=== PATIENT | female | born 1945 | race Caucasian/White ===

== ENCOUNTER 2016-11-16 16:23 | Inpatient (IN) | payer OTHER, BC ==
[~2016-11-16] VITALS: Ht 162.6 cm; Wt 87.3 kg
[~2016-11-16 16:23] MED LIST: AMITRIPTYLINE H50 MG PO; COENZYME Q-1010 MG PO; FLUTICASON0.05 MG/Ac; FOLIC ACID1 MG PO; HYDROCODONE/ACE1 TA2; LAC PO; LEVAQUIN500 MG PO; LEVEMIR100 U/M1 SC; MIDODRINE HCL2.5 M1 PO; MOTRIN800 MG PO; NOVOLOG FLEX100 U/M1 SC; PAXIL10 MG PO; PAXIL20 MG PO; PROTONIX40 MG PO; RESTORIL30 MG PO; TRAZODONE100 MG PO; VITAMIN B121000 MCG PO; VITAMIN D32000 I2 PO; XANAX0.5 MG PO; ZES10 PO
[2016-11-16 16:50] LABS: CARBON DIOXIDE 28.9 mmol/L (21-32); CREATININE SERUM 1.7 mg/dL (0.6-1.0); POTASSIUM SERUM 3.6 mmol/L (3.5-5.1)
[2016-11-16 16:51] LABS: BASOPHIL % 0.6 % (0-2); PLATELET COUNT 348 x10^3mcL (130-400)
[2016-11-16 16:57] LABS: BILIRUBIN TOTAL 0.25 mg/dL (0.20-1.00); TOTAL PROTEIN, SERUM 6.8 g/dL (6.4-8.2)
[2016-11-16 16:58] LABS: ALBUMIN 3.2 g/dL (3.4-5.0); CHOLESTEROL/HDL RATIO 3.1
[2016-11-16 17:11] LABS: T3 TOTAL 0.67 ng/mL
[2016-11-16 17:22] LABS: FREE T4 0.97 ng/dL (0.76-1.46); FREE THYROXINE INDEX 2.3 ug/dL (1.4-4.5); T4(THYROXINE) 6.1 ug/dL (4.7-13.3)
[2016-11-16 17:25] LABS: UA SPECIFIC GRAVITY 1.025 (1.005-1.035); microscopic required? YES; urine erythrocyte NEGATIVE (NEGATIVE)
[2016-11-16] MEDS ORDERED: PROA PO (17:41)
[2016-11-16 18:42] LABS: PHOSPHOROUS 3.2 mg/dL (2.5-4.9)
[2016-11-16 18:52] LABS: AMPHETAMINE QUAL UR NONE DETECTED (NEG <=1000)
[2016-11-16 19:05] VITALS: BP 174/73
[2016-11-16 21:25] VITALS: BP 112/60
[2016-11-17 05:35] VITALS: BP 128/61
[2016-11-17 06:11] LABS: BASOPHIL % 0.7 % (0-2); PLATELET COUNT 303 x10^3mcL (130-400)
[2016-11-17 06:38] LABS: CALCIUM 8.6 mg/dL (8.5-10.1); CARBON DIOXIDE 29.3 mmol/L (21-32); CREATININE SERUM 1.7 mg/dL (0.6-1.0); MAGNESIUM 2.2 mg/dL (1.8-2.4); PHOSPHOROUS 5.5 mg/dL (2.5-4.9); POTASSIUM SERUM 4.7 mmol/L (3.5-5.1)
[2016-11-17 06:54] LABS: RED CELL DISTRIBUTION WIDTH 17.3 % (11.5-14.5)
[2016-11-17 09:00] VITALS: BP 148/65
[2016-11-17 13:30] VITALS: BP 152/63
[2016-11-17 17:30] VITALS: BP 114/49
[2016-11-17 20:11] VITALS: BP 119/49
[2016-11-18 06:01] VITALS: BP 163/67
[2016-11-18] MEDS ORDERED: LIPI10 PO (06:21)
[2016-11-18 06:41] LABS: CALCIUM 8.2 mg/dL (8.5-10.1); CARBON DIOXIDE 27.6 mmol/L (21-32); CREATININE SERUM 1.5 mg/dL (0.6-1.0); PHOSPHOROUS 3.8 mg/dL (2.5-4.9); POTASSIUM SERUM 4.2 mmol/L (3.5-5.1)
[2016-11-18 06:42] LABS: ALBUMIN 2.4 g/dL (3.4-5.0)
[2016-11-18 11:30] VITALS: BP 141/66
[2016-11-18] MEDS ORDERED: CLOPIDOGREL75 M1 PO (15:13)
[2016-11-18] MEDS ORDERED: NORCO1 TA2 PO (15:18)
[2016-11-18 15:35] VITALS: BP 200/94
[2016-11-18] MEDS ORDERED: MIDODRINE HCL2.5 M1 PO (15:35)
[2016-11-18 21:42] VITALS: BP 155/59
[2016-11-18 23:30] VITALS: BP 141/66
[2016-11-19] VITALS (7 sets, daily range): BP systolic 133–164; BP diastolic 55–65
[2016-11-19 06:45] LABS: CALCIUM 8.8 mg/dL (8.5-10.1); CARBON DIOXIDE 30.1 mmol/L (21-32); CREATININE SERUM 1.4 mg/dL (0.6-1.0); POTASSIUM SERUM 4.5 mmol/L (3.5-5.1)
[2016-11-19] MEDS ORDERED: ATORVASTATIN CA40 M1 PO (11:20)
== END 2016-11-19 13:03 | disposition home or self-care (01) | DRG 205 ==
LOC: ED 16:23 → DU 17:50
PROVIDERS: Family Medicine; Specialist; ADMIT Family Medicine
DX: M94.0 Chondrocostal junction syndrome [Tietze] (principal); N17.0 Acute kidney failure with tubular necrosis; E43 Unspecified severe protein-calorie malnutrition; D68.69 Other thrombophilia; E11.59 Type 2 diabetes mellitus with other circulatory complications; E11.51 Type 2 diabetes mellitus with diabetic peripheral angiopathy without gangrene; E11.65 Type 2 diabetes mellitus with hyperglycemia; E11.42 Type 2 diabetes mellitus with diabetic polyneuropathy; I16.0 Hypertensive urgency; I95.1 Orthostatic hypotension; I44.4 Left anterior fascicular block; G47.00 Insomnia, unspecified; G25.81 Restless legs syndrome; F41.9 Anxiety disorder, unspecified; M51.34 Other intervertebral disc degeneration, thoracic region; D64.9 Anemia, unspecified; E03.9 Hypothyroidism, unspecified; E78.5 Hyperlipidemia, unspecified; E66.9 Obesity, unspecified; Z68.33 Body mass index [BMI] 33.0-33.9, adult; Z79.4 Long term (current) use of insulin; Z79.891 Long term (current) use of opiate analgesic
CPT/HCPCS: 82962; 83880; 84439; B4164; C9113; J0360; J1170; J1815; J7030; Q0092

== ENCOUNTER 2017-06-18 14:06 | Inpatient (IN) | payer OTHER, BC ==
[~2017-06-18] VITALS: Ht 162.6 cm; Wt 80.4 kg
[~2017-06-18 14:06] MED LIST changes: +ATORVASTATIN CA40 M1 PO; +CLOPIDOGREL75 M1 PO; +LIPI10 PO; +NORCO1 TA2 PO; +PROA PO
[2017-06-18 14:10] VITALS: Ht 162.6 cm; Wt 80.4 kg
[2017-06-18 15:01] LABS: BASOPHIL % 0.6 % (0-2); PLATELET COUNT 295 x10^3mcL (130-400)
[2017-06-18 15:04] LABS: RED CELL DISTRIBUTION WIDTH 17.4 % (11.5-14.5)
[2017-06-18 15:18] LABS: ALBUMIN 3.6 g/dL (3.4-5.0); ALKALINE PHOSPHATASE 96 U/L (46-116); ALT/SGPT 8 U/L (14-59); AST/SGOT 20 U/L (15-37); BILIRUBIN TOTAL 0.3 mg/dL (0.20-1.00); CALCIUM 9.1 mg/dL (8.5-10.1); CARBON DIOXIDE 28.6 mmol/L (21-32); CHLORIDE SERUM 104 mmol/L (98-107); CREATININE SERUM 1.4 mg/dL (0.6-1.0); POTASSIUM SERUM 3.2 mmol/L (3.5-5.1); SODIUM SERUM 142 mmol/L (136-145); TOTAL PROTEIN, SERUM 7.7 g/dL (6.4-8.2)
[2017-06-18 15:29] LABS: GLUCOSE SERUM 56 mg/dL (74-106)
[2017-06-18 15:38] LABS: microscopic required? YES; urine erythrocyte NEGATIVE (NEGATIVE)
[2017-06-18 17:27] VITALS: BP 137/70
[2017-06-18 18:01] LABS: MAGNESIUM 2.2 mg/dL (1.8-2.4); PHOSPHOROUS 1.9 mg/dL (2.5-4.9)
[2017-06-18 18:07] LABS: CHOLESTEROL/HDL RATIO 3.1
[2017-06-18 18:12] LABS: FREE T4 0.83 ng/dL (0.76-1.46)
[2017-06-18 18:19] LABS: T3 TOTAL 1.01 ng/mL
[2017-06-18] MEDS ORDERED: SEROQUEL25 MG PO (18:47)
[2017-06-18] MEDS ORDERED: METHADONE HCL5 MG PO ×2 (18:47→18:59)
[2017-06-18] MEDS ORDERED: MIDODRINE HCL10 MG PO (18:48)
[2017-06-18 21:23] VITALS: BP 167/55
[2017-06-19] VITALS (8 sets, daily range): BP systolic 145–174; BP diastolic 45–66
[2017-06-19 07:19] LABS: BASOPHIL % 0.7 % (0-2); PLATELET COUNT 209 x10^3mcL (130-400)
[2017-06-19 07:39] LABS: CALCIUM 8.7 mg/dL (8.5-10.1); CARBON DIOXIDE 27.6 mmol/L (21-32); CHLORIDE SERUM 109 mmol/L (98-107); CREATININE SERUM 1.2 mg/dL (0.6-1.0); GLUCOSE SERUM 159 mg/dL (74-106); MAGNESIUM 2.2 mg/dL (1.8-2.4); PHOSPHOROUS 3.3 mg/dL (2.5-4.9); POTASSIUM SERUM 4.5 mmol/L (3.5-5.1); SODIUM SERUM 141 mmol/L (136-145)
[2017-06-20 06:20] LABS: CALCIUM 8.4 mg/dL (8.5-10.1); CARBON DIOXIDE 27.5 mmol/L (21-32); CHLORIDE SERUM 107 mmol/L (98-107); CREATININE SERUM 1.2 mg/dL (0.6-1.0); GLUCOSE SERUM 198 mg/dL (74-106); POTASSIUM SERUM 4.7 mmol/L (3.5-5.1); SODIUM SERUM 140 mmol/L (136-145)
[2017-06-20 06:37] VITALS: BP 119/42
[2017-06-20 06:50] LABS: BASOPHIL % 0.7 % (0-2); PLATELET COUNT 191 x10^3mcL (130-400)
[2017-06-20 06:53] LABS: RED CELL DISTRIBUTION WIDTH 17.2 % (11.5-14.5)
[2017-06-20 08:25] VITALS: BP 106/64
[2017-06-20 12:40] VITALS: BP 174/75
[2017-06-20 15:29] VITALS: BP 142/86
[2017-06-20] MEDS ORDERED: ZAN4 PO (15:34)
[2017-06-20] MEDS ORDERED: PEP20 PO (15:35)
[2017-06-20] MEDS ORDERED: LAC PO (15:54)
[2017-06-20] MEDS ORDERED: LEVAQUIN250 M1 PO (15:54)
[2017-06-20 16:07] VITALS: BP 142/86
== END 2017-06-20 17:01 | disposition home or self-care (01) | DRG 391 ==
LOC: ED 14:06 → DU 15:54
PROVIDERS: Emergency Medicine; Internal Medicine Gastroenterology; Student in an Organized Health Care Education/Training Program
PROC: 0DB68ZX Excision of Stomach, Via Natural or Artificial Opening Endoscopic, Diagnostic (ICD-10-PCS; principal; 2017-06-20 10:00)
DX: K52.9 Noninfective gastroenteritis and colitis, unspecified (principal); N17.0 Acute kidney failure with tubular necrosis; E87.2 Acidosis; I95.1 Orthostatic hypotension; T38.3X1A Poisoning by insulin and oral hypoglycemic [antidiabetic] drugs, accidental (unintentional), initial encounter; E11.649 Type 2 diabetes mellitus with hypoglycemia without coma; R55 Syncope and collapse; I16.0 Hypertensive urgency; E86.0 Dehydration; E87.6 Hypokalemia; E83.39 Other disorders of phosphorus metabolism; E11.65 Type 2 diabetes mellitus with hyperglycemia; E11.40 Type 2 diabetes mellitus with diabetic neuropathy, unspecified; G89.4 Chronic pain syndrome; Z79.891 Long term (current) use of opiate analgesic; Z79.4 Long term (current) use of insulin; Z98.84 Bariatric surgery status; Z98.1 Arthrodesis status; Y92.009 Unspecified place in unspecified non-institutional (private) residence as the place of occurrence of the external cause; Z68.25 Body mass index [BMI] 25.0-25.9, adult
CPT/HCPCS: 43235; 82962; 83880; 84439; 90732; J1200; J1610; J1815; J1956; J2250; J2310; J2765; J3010; J3480; J3490; J7030; J7042; Q0092

== ENCOUNTER 2017-06-21 08:33 | Emergency (ER) | payer OTHER, BC ==
[~2017-06-21] VITALS: Ht 170.2 cm; Wt 72.6 kg
[~2017-06-21 08:33] MED LIST changes: +LEVAQUIN250 M1 PO; +METHADONE HCL5 MG PO; +MIDODRINE HCL10 MG PO; +PEP20 PO; +SEROQUEL25 MG PO; +ZAN4 PO
[2017-06-21 08:39] VITALS: Ht 170.2 cm; Wt 72.6 kg
[2017-06-21 10:32] LABS: BASOPHIL % 0.4 % (0-2); PLATELET COUNT 243 x10^3mcL (130-400)
[2017-06-21 10:35] LABS: CALCIUM 8.8 mg/dL (8.5-10.1); CARBON DIOXIDE 25.6 mmol/L (21-32); CHLORIDE SERUM 106 mmol/L (98-107); CREATININE SERUM 1.3 mg/dL (0.6-1.0); GLUCOSE SERUM 61 mg/dL (74-106); POTASSIUM SERUM 3.3 mmol/L (3.5-5.1); SODIUM SERUM 142 mmol/L (136-145)
[2017-06-21 10:37] LABS: RED CELL DISTRIBUTION WIDTH 17.3 % (11.5-14.5)
[2017-06-21 10:40] LABS: ALKALINE PHOSPHATASE 83 U/L (46-116); ALT/SGPT 16 U/L (14-59); AST/SGOT 18 U/L (15-37); BILIRUBIN TOTAL 0.3 mg/dL (0.20-1.00); TOTAL PROTEIN, SERUM 6.8 g/dL (6.4-8.2)
[2017-06-21 12:52] VITALS: BP 167/79
== END 2017-06-21 12:52 | disposition home or self-care (01) ==
LOC: ED 08:33
PROVIDERS: Emergency Medicine Emergency Medical Services
DX: E11.649 Type 2 diabetes mellitus with hypoglycemia without coma (principal); R03.0 Elevated blood-pressure reading, without diagnosis of hypertension; G47.30 Sleep apnea, unspecified; Z90.49 Acquired absence of other specified parts of digestive tract; Z90.89 Acquired absence of other organs; Z88.0 Allergy status to penicillin; Z88.6 Allergy status to analgesic agent; Z88.5 Allergy status to narcotic agent; Z88.8 Allergy status to other drugs, medicaments and biological substances
CPT/HCPCS: 82962; Q0092

== ENCOUNTER 2018-05-19 23:09 | Emergency (ER) | payer OTHER, BC ==
[~2018-05-19] VITALS: Ht 162.6 cm; Wt 72.6 kg
[2018-05-19 23:19] VITALS: Ht 162.6 cm; Wt 72.6 kg
[2018-05-20 01:31] VITALS: BP 149/88
== END 2018-05-20 01:37 | disposition home or self-care (01) ==
LOC: ED 23:09
DX: F11.23 Opioid dependence with withdrawal (principal); F13.239 Sedative, hypnotic or anxiolytic dependence with withdrawal, unspecified; E11.9 Type 2 diabetes mellitus without complications; Z90.89 Acquired absence of other organs; Z98.84 Bariatric surgery status; Z90.49 Acquired absence of other specified parts of digestive tract; Z98.890 Other specified postprocedural states; Z88.0 Allergy status to penicillin; Z88.6 Allergy status to analgesic agent; Z88.5 Allergy status to narcotic agent; Z88.8 Allergy status to other drugs, medicaments and biological substances

== ENCOUNTER 2018-06-02 23:54 | Emergency (ER) | payer OTHER, BC ==
[~2018-06-02] VITALS: Ht 162.6 cm; Wt 82.6 kg
[2018-06-03 00:06] VITALS: Ht 162.6 cm; Wt 82.6 kg
[2018-06-03 02:29] VITALS: BP 142/84
== END 2018-06-03 02:00 | disposition home or self-care (01) ==
LOC: ED 23:54
DX: F41.9 Anxiety disorder, unspecified (principal); M79.641 Pain in right hand; M79.642 Pain in left hand; E11.9 Type 2 diabetes mellitus without complications; Z90.49 Acquired absence of other specified parts of digestive tract; Z90.89 Acquired absence of other organs; Z98.890 Other specified postprocedural states; Z98.84 Bariatric surgery status; Z88.0 Allergy status to penicillin; Z88.5 Allergy status to narcotic agent; Z88.6 Allergy status to analgesic agent; Z88.8 Allergy status to other drugs, medicaments and biological substances

== ENCOUNTER 2018-06-05 03:46 | Emergency (ER) | payer OTHER, BC ==
[~2018-06-05] VITALS: Ht 162.6 cm; Wt 80.7 kg
[2018-06-05 03:54] VITALS: Ht 162.6 cm; Wt 80.7 kg
[2018-06-05 05:53] VITALS: BP 146/68
== END 2018-06-05 05:53 | disposition home or self-care (01) ==
LOC: ED 03:46
DX: F41.9 Anxiety disorder, unspecified (principal); G62.9 Polyneuropathy, unspecified; E11.9 Type 2 diabetes mellitus without complications; Z88.0 Allergy status to penicillin; Z88.5 Allergy status to narcotic agent; Z88.6 Allergy status to analgesic agent; Z88.8 Allergy status to other drugs, medicaments and biological substances; Z90.89 Acquired absence of other organs; Z90.49 Acquired absence of other specified parts of digestive tract; Z98.84 Bariatric surgery status; Z98.890 Other specified postprocedural states
CPT/HCPCS: J1885

== ENCOUNTER 2018-06-14 02:16 | Emergency (ER) | payer OTHER, BC | END 2018-06-14 03:25 | disposition home or self-care (01) | LOC: ED 02:16 ==

== ENCOUNTER 2018-06-15 05:20 | Inpatient (IN) | payer BC, OTHER | END 2018-06-16 15:49 | disposition left against medical advice (07) | LOC: ED 05:20 → DU 10:37 → ED 05:20 → DU 10:37 → ED 05:20 → DU 10:37 → ED 05:20 → DU 10:37 → ED 05:20 → DU 10:37 → ED 05:20 → DU 06-16 10:42 → ED 05:20 → DU 10:37 | DX: F13.10 Sedative, hypnotic or anxiolytic abuse, uncomplicated (principal); G92 Toxic encephalopathy; D68.69 Other thrombophilia; E44.0 Moderate protein-calorie malnutrition; E11.65 Type 2 diabetes mellitus with hyperglycemia; Z79.4 Long term (current) use of insulin; Z71.51 Drug abuse counseling and surveillance of drug abuser; Z68.30 Body mass index [BMI] 30.0-30.9, adult ==

== ENCOUNTER 2018-07-11 02:54 | Emergency (ER) | payer OTHER, BC ==
[~2018-07-11 02:54] MED LIST changes: +CLONAZEPAM0.5 MG; +TRINTELLIX10 MG
[2018-07-11 03:42] VITALS: BP 124/68
== END 2018-07-11 03:42 | disposition home or self-care (01) ==
LOC: ED 02:54
DX: G47.00 Insomnia, unspecified (principal); E11.9 Type 2 diabetes mellitus without complications; F41.9 Anxiety disorder, unspecified; Z98.890 Other specified postprocedural states; Z90.49 Acquired absence of other specified parts of digestive tract; Z90.89 Acquired absence of other organs; Z88.0 Allergy status to penicillin; Z88.6 Allergy status to analgesic agent; Z88.8 Allergy status to other drugs, medicaments and biological substances

== ENCOUNTER 2018-07-13 03:41 | Inpatient (IN) | payer OTHER, BC ==
[~2018-07-13] VITALS: Ht 162.6 cm; Wt 77.1 kg
[2018-07-13 03:48] VITALS: Ht 162.6 cm; Wt 77.1 kg
[2018-07-13 04:19] LABS: BASOPHIL % 1.1 % (0-2); PLATELET COUNT 313 x10^3mcL (130-400); RED CELL DISTRIBUTION WIDTH 14.2 % (11.5-14.5)
[2018-07-13 04:26] LABS: CALCIUM 8.9 mg/dL (8.5-10.1); CARBON DIOXIDE 33.4 mmol/L (21-32); CHLORIDE SERUM 104 mmol/L (98-107); CREATININE SERUM 1.5 mg/dL (0.6-1.0); GLUCOSE SERUM 268 mg/dL (74-106); POTASSIUM SERUM 4.4 mmol/L (3.5-5.1); SODIUM SERUM 140 mmol/L (136-145)
[2018-07-13 04:31] LABS: ALKALINE PHOSPHATASE 96 U/L (46-116); ALT/SGPT 22 U/L (14-59); AST/SGOT 19 U/L (15-37); BILIRUBIN TOTAL 0.17 mg/dL (0.20-1.00); TOTAL PROTEIN, SERUM 6.6 g/dL (6.4-8.2)
[2018-07-13 04:34] LABS: ALBUMIN 2.9 g/dL (3.4-5.0)
[2018-07-13] MEDS ORDERED: CLONAZEPAM0.5 MG PO (05:26)
[2018-07-13] MEDS ORDERED: TRINTELLIX10 MG PO (05:26)
[2018-07-13] MEDS ORDERED: DOXEPIN HCL50 MG PO (05:28)
[2018-07-13] MEDS ORDERED: FLUDROCORTISON0.1 MG PO (05:29)
[2018-07-13] MEDS ORDERED: MIDODRINE HCL10 MG PO (05:29)
[2018-07-13] MEDS ORDERED: AMBIEN5 MG PO (05:29)
[2018-07-13] MEDS ORDERED: PANTOPRAZOLE SO40 M1 PO (05:30)
[2018-07-13] MEDS ORDERED: BANOPHEN25 MG PO (05:31)
[2018-07-13 05:46] LABS: MAGNESIUM 2.4 mg/dL (1.8-2.4); PHOSPHOROUS 3.8 mg/dL (2.5-4.9)
[2018-07-13 05:48] LABS: CHOLESTEROL/HDL RATIO 2.7
[2018-07-13 05:56] LABS: FREE T4 0.76 ng/dL (0.76-1.46); T4(THYROXINE) 5.3 ug/dL (4.7-13.3)
[2018-07-13 07:00] LABS: UA SPECIFIC GRAVITY >=1.030 (1.005-1.035); microscopic required? YES; urine erythrocyte NEGATIVE (NEGATIVE)
[2018-07-13 09:12] LABS: T3 TOTAL 0.87 ng/mL
[2018-07-13 09:46] VITALS: BP 104/86
[2018-07-13 14:11] VITALS: BP 164/95
[2018-07-13 15:15] VITALS: BP 136/96; BP 165/76
[2018-07-13 17:29] VITALS: BP 143/73
[2018-07-13 20:53] VITALS: BP 158/76
[2018-07-14 08:17] VITALS: BP 158/67
[2018-07-14 14:11] VITALS: BP 133/61
[2018-07-14 14:17] VITALS: BP 133/61
[2018-07-14 16:21] VITALS: BP 150/73
== END 2018-07-14 16:50 | disposition home or self-care (01) | DRG 311 ==
LOC: ED 03:41 → DU 05:18 → ED 06:00 → DU 06:01
PROVIDERS: Emergency Medicine; ADMIT Internal Medicine
DX: I24.9 Acute ischemic heart disease, unspecified (principal); E11.42 Type 2 diabetes mellitus with diabetic polyneuropathy; F41.9 Anxiety disorder, unspecified; D64.9 Anemia, unspecified; F11.90 Opioid use, unspecified, uncomplicated; I34.0 Nonrheumatic mitral (valve) insufficiency; I36.1 Nonrheumatic tricuspid (valve) insufficiency; Z98.84 Bariatric surgery status; Z79.4 Long term (current) use of insulin; Z68.29 Body mass index [BMI] 29.0-29.9, adult
CPT/HCPCS: 82962; 83880; 84439; A9500; C9113; J1885; J2785; J7030; Q0092

== ENCOUNTER 2018-08-17 01:52 | Emergency (ER) | payer OTHER, BC ==
[~2018-08-17] VITALS: Ht 162.6 cm; Wt 86.2 kg
[~2018-08-17 01:52] MED LIST changes: +AMBIEN5 MG PO; +BANOPHEN25 MG PO; +CLONAZEPAM0.5 MG PO; +DOXEPIN HCL50 MG PO; +FLUDROCORTISON0.1 MG PO; +PANTOPRAZOLE SO40 M1 PO; +TRINTELLIX10 MG PO
[2018-08-17 02:00] VITALS: BP 137/98; Ht 162.6 cm; Wt 86.2 kg
== END 2018-08-17 02:42 | disposition home or self-care (01) ==
LOC: ED 01:52
DX: F41.9 Anxiety disorder, unspecified (principal); E11.9 Type 2 diabetes mellitus without complications; Z90.49 Acquired absence of other specified parts of digestive tract; Z90.89 Acquired absence of other organs; Z88.0 Allergy status to penicillin; Z88.6 Allergy status to analgesic agent; Z88.5 Allergy status to narcotic agent

== ENCOUNTER 2019-05-16 23:03 | Inpatient (IN) | payer OTHER, BC ==
[~2019-05-16] VITALS: Ht 167.6 cm; Wt 77.1 kg
[~2019-05-16 23:03] MED LIST changes: -CLONAZEPAM0.5 MG; -DOXEPIN HCL50 MG PO; -TRINTELLIX10 MG; -TRINTELLIX10 MG PO
[2019-05-16 23:08] VITALS: Ht 167.6 cm; Wt 77.1 kg
--- NOTE | 2019-05-16 23:23 | NUR ---
PT PRESENTS TO ED BIBA WITH C/C RESTLESS LEGS S/P TAKING NEW MEDICATION FOR ANXIETY, SEROQUEL AND ANOTHER UNKNOWN MEDICATION. PT IS AAOX4. RESP E/U. PT IS UNABLE TO SIT STILL IN BED AND APPEARS ANXIOUS. PT REPORTS INABILITY TO KEEP LEGS STILL AND FEELS LIKE SHE NEEDS TO MOVE AROUND. DENIES ANY PAIN OR OTHER SYMPTOMS. AT BEDSIDE. PT CONNECTED TO MONITOR. AWAITING MSE.
--- NOTE | 2019-05-16 23:54 | NUR ---
PT INSTRUCTED TO PROVIDE URINE SAMPLE PHUONG.
[2019-05-17 00:16] LABS: PLATELET COUNT 321 x10^3mcL (130-400)
[2019-05-17 00:20] LABS: CALCIUM 8.9 mg/dL (8.5-10.1); CARBON DIOXIDE 28.6 mmol/L (21-32); CHLORIDE SERUM 103 mmol/L (98-107); CREATININE SERUM 1.5 mg/dL (0.6-1.0); GLUCOSE SERUM 339 mg/dL (74-106); POTASSIUM SERUM 4.4 mmol/L (3.5-5.1); RED CELL DISTRIBUTION WIDTH 16.4 % (11.5-14.5); SODIUM SERUM 139 mmol/L (136-145)
[2019-05-17 00:24] LABS: ALKALINE PHOSPHATASE 98 U/L (46-116); ALT/SGPT 17 U/L (14-59); AST/SGOT 20 U/L (15-37); BILIRUBIN TOTAL 0.2 mg/dL (0.20-1.00); TOTAL PROTEIN, SERUM 7.1 g/dL (6.4-8.2)
[2019-05-17 00:27] LABS: ALBUMIN 2.9 g/dL (3.4-5.0)
--- NOTE | 2019-05-17 01:19 | NUR ---
PT ATTEMPTING TO GET OUT OF BED AT THIS TIME. INSTRUCTED TO STAY IN BED FOR SAFETY. PT UNCOOPERATIVE. PT NEEDS CONSTANT REDIRECTION. AT BEDSIDE.
--- NOTE | 2019-05-17 01:59 | NUR ---
PT NOTED TO BE CALM AND SLEEPING IN POSITION OF COMFORT. NAD NOTED. WILL CONTINUE TO MONITOR.
[2019-05-17 02:30] LABS: CHOLESTEROL/HDL RATIO 3.5
--- NOTE | 2019-05-17 02:30 | NUR ---
REPORT GIVEN TO ASHA KELLY TO ASSUME CARE.
--- NOTE | 2019-05-17 02:36 | NUR ---
PT TRANSFERRED TO MED SURG. SLEEPING IN NAD AT TIME OF TRANSFER. TAKEN BY TECH. COLT LEA AT BEDSIDE. VSS AT TIME OF TRANSFER.
[2019-05-17 02:37] LABS: T3 TOTAL 0.78 ng/mL
[2019-05-17 02:39] LABS: FREE T4 1.06 ng/dL (0.76-1.46); FREE THYROXINE INDEX 2.3 ug/dL (1.4-4.5); T4(THYROXINE) 6.7 ug/dL (4.7-13.3)
--- NOTE | 2019-05-17 02:50 | NUR ---
PT RECIEVED FROM ED, VIA GUERNEY, ACCOMPANIED BY NURSE. PT LATHARGIC AND DROWSY AT THIS TIME. PT NOT RESPONDING TO VERBAL STIMULI. PT WITHDRAWS TO TACTILE STIMULI. PT HISTORY RECIEVED FROM PT . PT TELE 18, NS. SO S/S OF CHEST PAIN NOTED. PALPABLPE PULSES, NO EDEMA SEEN AT THIS TIME. BREATHING E/U ON RA. ABD SOFT AND ROUND. NO GRIMICE TO PALPATION. GENERALIZED WEAKNESS, USES WALKER AT HOME. BRYSON TO L BICEP. CDI. BED AT LOWEST POSITION. BED ALARM ON. WILL CONTINUE TO MONITOR.
[2019-05-17 03:11] VITALS: BP 134/90
[2019-05-17 04:44] LABS: TOTAL IRON BINDING CAPACITY 354 ug/dL (250-450)
[2019-05-17 04:49] LABS: IRON 20 ug/dL (50-170)
[2019-05-17 04:59] LABS: RED BLOOD CELLS 4.28 M/mm3 (4.10-5.10)
--- NOTE | 2019-05-17 06:46 | NUR ---
PT RESTING IN BED AT THIS TIME. PT RESPONDING TO TACTILE STIMULI. UNABLE TO ASSESS ALERTNESS AT THIS TIME. NO S/S OF ACUTE DISTRESS NOTED AT THIS TIME. BED AT LOWEST POSITION. CALL LIGHT WITHIN REACH. WILL CONTINUE TO MONITOR.
[2019-05-17 07:31] LABS: CALCIUM 9.2 mg/dL (8.5-10.1); CARBON DIOXIDE 25.5 mmol/L (21-32); CHLORIDE SERUM 107 mmol/L (98-107); CREATININE SERUM 1.3 mg/dL (0.6-1.0); GLUCOSE SERUM 196 mg/dL (74-106); MAGNESIUM 2.3 mg/dL (1.8-2.4); PHOSPHOROUS 3.7 mg/dL (2.5-4.9); POTASSIUM SERUM 3.8 mmol/L (3.5-5.1); SODIUM SERUM 140 mmol/L (136-145)
--- NOTE | 2019-05-17 08:03 | NUR ---
AT 0720 - RECEIVED PATIENT FROM NIGHT NURSE. PATIENT SLEEPING. RESPIRATIONS REGULAR. MONITOR SHOWING SINUS RHYTHM; RATE 64. CONTINUING TO MONITOR.
[2019-05-17 08:31] VITALS: BP 101/50
--- NOTE | 2019-05-17 09:21 | NUR ---
PATIENT REMAINS LETHARGIC. RESPONDS TO PAINFUL AND VERBAL STIMULI. SAID: "LEAVE ME ALONE". CONTINUING TO OBSERVE CLOSELY.
--- NOTE | 2019-05-17 09:37 | NUR ---
SPOKE WITH DR BRUCE REGARDING PATIENT'S LETHARGIC STATE. HE WILL SPEAK WITH ATTENDING PHYSICIAN, DR HALL REGARDING PLAN OF CARE.
--- NOTE | 2019-05-17 09:46 | NUR ---
PATIENT WOKE UP AND AMBULATED TO BATHROOM WITH ASSISTANCE. NOW SITTING UP IN BED FOR BREAKFAST. REMAINS DROWSY. SPEECH CLEAR AND PATIENT ABLE TO KMAKE NEEDS KNOWN.
[2019-05-17 11:56] VITALS: BP 119/55
[2019-05-17 11:57] LABS: BASOPHIL % 0.9 % (0-2); PLATELET COUNT 292 x10^3mcL (130-400); RED CELL DISTRIBUTION WIDTH 16.3 % (11.5-14.5)
--- NOTE | 2019-05-17 14:11 | NUR ---
AT 1315 - PATIENT AMBULATED TO BATHROOM TO VOID, BUT UNABLE TO DO SO AT THIS TIME. RETURNED TO BED AND SAT UP INB ED FOR LUNCH. AT 1400 - PATIENT SLEEPING AGAIN.
[2019-05-17 16:44] VITALS: BP 117/67
[2019-05-17 18:24] LABS: UA SPECIFIC GRAVITY 1.025 (1.005-1.035); microscopic required? YES; urine erythrocyte NEGATIVE (NEGATIVE)
[2019-05-17 18:32] LABS: AMPHETAMINE QUAL UR NONE DETECTED (See below)
--- NOTE | 2019-05-17 19:02 | NUR ---
AT 1800 - PAITENT MORE AWAKE, ALERT AND ORIENTED X 4. VOIDED AND URINE COLLECTED AND TAKEN TO LAB FOR UA AND UDS. AT BEDSIDE. AT 1830 - PATIENT BECAME RESTLESS. EXPRESSED WISH TO GO HOME. CHARGE NURSE CALLED RESIDENT DOCTOR WHO WILL COME TO SEE PATIENT. AT 1900 - RESTING QUIETLY AGAIN. VSS AND WNL. NO C/O PAIN. RESPIRATIONS REGULAR. PATIENT TAKING PO LIQUIDS AND SOME FOOD. WILL ENDORSE CARE TO NIGHT NURSE.
--- NOTE | 2019-05-17 19:37 | NUR ---
RECEIVED SLEEPING , RESPIRATION EVEN AND UNLABORED. NO S/S OF ACUTE DISTRESS. ON TELE #18 WITH SA . IV SITE AT THE LFA INTACT , IV SITE NO REDNESS/NO SWELLING NOTED. PLACED CALL LIGHT WITHIN REACH. BED IN LOWEST POSITION FOR SAFRTY.
[2019-05-17 20:21] VITALS: BP 142/64
--- NOTE | 2019-05-17 22:55 | NUR ---
ATIVAN 1MG IVP GIVEN ORN FOR ANXIETY/RESTLESSNESS. HS SNACK GIVEN AND WELL TOLERATED. NO S/S OF ASPIRATION NOTED.
--- NOTE | 2019-05-18 00:30 | NUR ---
EYES CLOSED, NO FACIAL GRIMACING NOTED. APPARENTLY ASLEEP SOUNDLY. RESPIRATION EVEN ANDUNLABORED. NO S/S OF ACUTE DSITRESS.
[2019-05-18 04:56] VITALS: BP 122/66
--- NOTE | 2019-05-18 06:07 | NUR ---
BLOOD SUGAR 88/MG/DL, NO INSULIN COVERAGE. NOÉ CRACKERS WITH APPLE JUICE GIVEN AND WELL TOLERAT DENIES ANY PAIN/DISCOMFORT AT THIS TIME. ALL NEEDS ATTENDED.
[2019-05-18 07:06] LABS: CALCIUM 8.6 mg/dL (8.5-10.1); CARBON DIOXIDE 29.4 mmol/L (21-32); CHLORIDE SERUM 110 mmol/L (98-107); CREATININE SERUM 1.3 mg/dL (0.6-1.0); GLUCOSE SERUM 257 mg/dL (74-106); MAGNESIUM 2.1 mg/dL (1.8-2.4); PHOSPHOROUS 3.8 mg/dL (2.5-4.9); POTASSIUM SERUM 4.3 mmol/L (3.5-5.1); SODIUM SERUM 145 mmol/L (136-145)
--- NOTE | 2019-05-18 07:20 | NUR ---
RECEIVED PT FROM OFFSET PRESSMAN RN. Roque/JASON. TELE#18. DENIES CHEST PAIN/PRESSURE. RESPIRATIONS EQUAL AND UNLABORED ON RA. DENIES SOB. PT DENIES ANY PAIN AT THIS TIME. PT EAGER TO BE DISCHARGE HOME. PT STATES "I JUST WANT TO GO HOME TODAY. I DONT WANT TO BE SEND HOME AFTER 6PM. I WANT TO GO SOON POSSIBLE. I FEEL BETTER." EXPLAINED TO PT WILL AWAIT ROUNDS WITH DOCTORS TO FIND OUT DISCHARGE PLAN. PT AGREEABLE. PT ASKING TO HAVE ATIVAN. IV TO LFA SALINE LOCKED. NO REDNESS OR SWELLING NOTED. WILL CONTINUE TO MONITOR. CALL LIGHT IN REACH. BED IN LOWEST POSITION.
[2019-05-18 07:24] VITALS: BP 144/59
[2019-05-18 07:44] LABS: BASOPHIL % 0.7 % (0-2); PLATELET COUNT 302 x10^3mcL (130-400)
[2019-05-18 07:48] LABS: RED CELL DISTRIBUTION WIDTH 16.3 % (11.5-14.5)
--- NOTE | 2019-05-18 08:49 | NUR ---
PT IN BED RESTING. NO ACUTE RESP DISTRES NOTED RA. PT C/O FEELING ANXIOUS. MEDICATED PER EMAR. PT GIVEN COLACE. TOLERATED WELL. PT STATES "GOOD I COULD USE A STOOL SOFTNER." ZOEY PHYSICAL THERAPIST AT BEDSIDE. IV TO LAC FLUSHED WELL. NO REDNESS OR SWELLING NOTED. WILL CONTINUE TO MONITOR. CALL LIGHT IN REACH. BED IN LOWEST POSITION.
--- NOTE | 2019-05-18 11:24 | NUR ---
RECEIVED ORDERS TO TRANSFER PT TO MED SURG. TELE#18 RETURNED TO [employer]AT TAILOR[employer] KNOWLES.
[2019-05-18 12:49] VITALS: BP 136/53
[2019-05-18 15:55] VITALS: BP 144/61
--- NOTE | 2019-05-18 16:36 | NUR ---
PT SITTING UP IN BED. NO ACUTE RESP DISTRESS NOTED. AT BEDSIDE. PT DENIES ANY PAIN AT THIS TIME. BLOOD SUGAR CHECKED WAS 204. GIVEN 6 UNITS OF REGULAR INSULIN PER SLIDING SCALE. WILL CONTINUE TO MONITOR. CALL LIGHT IN REACH. BED IN LOWEST POSITION.
--- NOTE | 2019-05-18 18:26 | NUR ---
PT SITTING UP IN BED. NO ACUTE RESP DISTRESS NOTED ON RA. PT DENIES ANY PAIN AT THIS TIME. PT ASKING TO HAVE ATIVAN PRIOR TO BED TIME TO HELP HER SLEEP. IV TO LAC SALINE LOCKED. NO REDNESS OR SWELLING NOTED. WILL ENDORSE TO GIFTS OFFICER RN. CALL LIGHT IN REACH. BED IN LOWEST POSITION.
--- NOTE | 2019-05-18 19:15 | NUR ---
RECEIVED PT FROM PREVIOUS SHIFT NURSE. PT AOX4, DENIES BULLOCK/DIZZINESS. MED SURG PT. DENIES CP/PRESSURE. DENIES SOB/DIFFICULTY BREATHING, ON RA. IV NOTED TO LAC, SLIGHT REDNESS AND SMALL RED BUMP NOTED AT IV SITE. BED IN LOWEST POSITION. CALL LIGHT WITHIN REACH. WILL CONTINUE TO MONITOR.
[2019-05-18 19:35] VITALS: BP 130/56
--- NOTE | 2019-05-19 02:12 | NUR ---
PT RESTING IN BED. RR EVEN AND UNLABORED. NO ACUTE DISTRESS. CALL LIGHT WITHIN REACH AND BED IN LOWEST POSITION. WILL CONTINUE TO MONITOR.
[2019-05-19 04:23] VITALS: BP 129/54
[2019-05-19 06:03] LABS: CALCIUM 8.6 mg/dL (8.5-10.1); CARBON DIOXIDE 27.7 mmol/L (21-32); CHLORIDE SERUM 105 mmol/L (98-107); CREATININE SERUM 1.5 mg/dL (0.6-1.0); GLUCOSE SERUM 284 mg/dL (74-106); POTASSIUM SERUM 4.6 mmol/L (3.5-5.1); SODIUM SERUM 142 mmol/L (136-145)
[2019-05-19 06:10] LABS: BASOPHIL % 0.9 % (0-2); PLATELET COUNT 338 x10^3mcL (130-400)
[2019-05-19 06:45] LABS: RED CELL DISTRIBUTION WIDTH 16.7 % (11.5-14.5)
--- NOTE | 2019-05-19 07:10 | NUR ---
RECEIEVED PT FROM TANK CAR MECHANIC NURSE. PT RESTING IN BED, AXO4, RESP E/U ON RA. C/O OF MILD WRIST PAIN AT THIS TIME, TOLERABLE TO PT, NO ERYTHEMA OR EDEMA NOTED. COMFORT MEASURES IMPLEMENTED. SALINE LOCK TO RAC, IV SITE WNL. BED IN LOWEST POSITION AND CALL LIGHT WITHIN REACH. WILL CONTINUE TO MONITOR.
[2019-05-19 07:52] VITALS: BP 149/78
[2019-05-19 11:12] VITALS: BP 149/78
[2019-05-19] MEDS ORDERED: AMBIEN5 MG PO (11:14)
[2019-05-19] MEDS ORDERED: DOXEPIN HCL50 MG PO (11:42)
[2019-05-19] MEDS ORDERED: MIDODRINE HCL10 MG PO (11:42)
[2019-05-19] MEDS ORDERED: TRINTELLIX10 MG PO (11:42)
[2019-05-19] MEDS ORDERED: CLONAZEPAM0.5 MG (11:43)
[2019-05-19] MEDS ORDERED: TRINTELLIX10 MG (11:43)
[2019-05-19 11:54] VITALS: BP 150/82
--- NOTE | 2019-05-19 12:16 | NUR ---
PT DISCHARGED. REVIEWED DISCHARGE PACKET W/ PT INCLUDING NEW RX MEDS AND FOLLOW UP INSTRUCTIONS. PT AOX4, RESP E/U ON RA, VS STABLE, DENIES PAIN AT THIS TIME. IV TO RAC REMOVED, CATH INTACT, GAUZE DRESSING APPLIED. PT ESCORTED TO LOBBY VIA WHEELCHAIR BY MOO VALENCIA W/ NO ACUTE INCIDENCE.
== END 2019-05-19 12:16 | disposition home health service (06) | DRG 91 ==
LOC: ED 23:03 → DU 05-17 00:58 → MU 05-17 00:58 → DU 05-17 02:40 → MU 05-18 11:19
PROVIDERS: Emergency Medicine; ADMIT Internal Medicine
DX: G92 Toxic encephalopathy (principal); N17.0 Acute kidney failure with tubular necrosis; E44.0 Moderate protein-calorie malnutrition; J81.1 Chronic pulmonary edema; T43.595A Adverse effect of other antipsychotics and neuroleptics, initial encounter; E11.65 Type 2 diabetes mellitus with hyperglycemia; F19.982 Other psychoactive substance use, unspecified with psychoactive substance-induced sleep disorder; I10 Essential (primary) hypertension; D50.9 Iron deficiency anemia, unspecified; F41.9 Anxiety disorder, unspecified; Z98.84 Bariatric surgery status; Z79.4 Long term (current) use of insulin; Z68.36 Body mass index [BMI] 36.0-36.9, adult; Y92.009 Unspecified place in unspecified non-institutional (private) residence as the place of occurrence of the external cause
CPT/HCPCS: 82962; 83880; 84439; G0378; J1815; J2060; J7030; Q0092

== ENCOUNTER 2019-05-22 01:16 | Emergency (ER) | payer OTHER, BC ==
[~2019-05-22] VITALS: Ht 162.6 cm; Wt 90.7 kg
[~2019-05-22 01:16] MED LIST changes: +CLONAZEPAM0.5 MG; +DOXEPIN HCL50 MG PO; +TRINTELLIX10 MG; +TRINTELLIX10 MG PO
[2019-05-22 01:22] VITALS: Ht 162.6 cm; Wt 90.7 kg
[2019-05-22 04:05] VITALS: BP 145/70
== END 2019-05-22 04:05 | disposition home or self-care (01) ==
LOC: ED 01:16
DX: F41.0 Panic disorder [episodic paroxysmal anxiety] (principal); E11.9 Type 2 diabetes mellitus without complications; Z90.89 Acquired absence of other organs; Z90.49 Acquired absence of other specified parts of digestive tract; Z88.0 Allergy status to penicillin; Z88.5 Allergy status to narcotic agent; Z88.6 Allergy status to analgesic agent
CPT/HCPCS: Q0092

== ENCOUNTER 2019-05-22 13:25 | Emergency (ER) | payer OTHER, BC ==
[~2019-05-22] VITALS: Ht 162.6 cm; Wt 90.7 kg
[2019-05-22 13:38] VITALS: Ht 162.6 cm; Wt 90.7 kg
[2019-05-22 14:38] LABS: microscopic required? NO
[2019-05-22 14:49] LABS: urine erythrocyte NEGATIVE (NEGATIVE)
[2019-05-22 14:56] LABS: CHLORIDE SERUM 105 mmol/L (98-107); CREATININE SERUM 1.5 mg/dL (0.6-1.0); GLUCOSE SERUM 376 mg/dL (74-106); POTASSIUM SERUM 4.9 mmol/L (3.5-5.1); SODIUM SERUM 143 mmol/L (136-145)
[2019-05-22 15:01] LABS: ALBUMIN 3.3 g/dL (3.4-5.0); ALKALINE PHOSPHATASE 137 U/L (46-116); ALT/SGPT 17 U/L (14-59); AST/SGOT 15 U/L (15-37); BILIRUBIN TOTAL 0.3 mg/dL (0.20-1.00); TOTAL PROTEIN, SERUM 7.3 g/dL (6.4-8.2)
[2019-05-22 15:04] LABS: BASOPHIL % 0.4 % (0-2); PLATELET COUNT 360 x10^3mcL (130-400)
[2019-05-22 16:35] VITALS: BP 134/72
== END 2019-05-22 16:35 | disposition home or self-care (01) ==
LOC: ED 13:25
PROVIDERS: Emergency Medicine
DX: R53.1 Weakness (principal); E11.65 Type 2 diabetes mellitus with hyperglycemia; Z98.890 Other specified postprocedural states; Z90.89 Acquired absence of other organs; Z90.49 Acquired absence of other specified parts of digestive tract; Z88.0 Allergy status to penicillin; Z88.6 Allergy status to analgesic agent; Z88.5 Allergy status to narcotic agent
CPT/HCPCS: 82962; J1815; J2060; J7030

== ENCOUNTER 2019-05-24 23:00 | Emergency (ER) | payer OTHER, BC ==
[~2019-05-24] VITALS: Ht 162.6 cm; Wt 90.7 kg
[2019-05-24 23:08] VITALS: Ht 162.6 cm; Wt 90.7 kg
[2019-05-24 23:58] LABS: BASOPHIL % 0.6 % (0-2); PLATELET COUNT 349 x10^3mcL (130-400)
[2019-05-24 23:59] LABS: RED CELL DISTRIBUTION WIDTH 16.3 % (11.5-14.5)
[2019-05-25 00:15] LABS: CALCIUM 8.9 mg/dL (8.5-10.1); CARBON DIOXIDE 30.8 mmol/L (21-32); CHLORIDE SERUM 102 mmol/L (98-107); CREATININE SERUM 1.6 mg/dL (0.6-1.0); GLUCOSE SERUM 346 mg/dL (74-106); POTASSIUM SERUM 4.5 mmol/L (3.5-5.1); SODIUM SERUM 138 mmol/L (136-145)
[2019-05-25 00:21] LABS: ALKALINE PHOSPHATASE 115 U/L (46-116); ALT/SGPT 18 U/L (14-59); AST/SGOT 11 U/L (15-37); BILIRUBIN TOTAL 0.23 mg/dL (0.20-1.00); TOTAL PROTEIN, SERUM 7.1 g/dL (6.4-8.2)
[2019-05-25 00:22] LABS: ALBUMIN 2.8 g/dL (3.4-5.0)
[2019-05-25 03:09] VITALS: BP 146/51
== END 2019-05-25 03:15 | disposition home or self-care (01) ==
LOC: ED 23:00
PROVIDERS: Emergency Medicine
DX: F41.9 Anxiety disorder, unspecified (principal); G47.00 Insomnia, unspecified; E11.65 Type 2 diabetes mellitus with hyperglycemia; Z88.0 Allergy status to penicillin; Z88.6 Allergy status to analgesic agent; Z88.5 Allergy status to narcotic agent; Z90.49 Acquired absence of other specified parts of digestive tract; Z90.89 Acquired absence of other organs; Z98.84 Bariatric surgery status
CPT/HCPCS: J2060; J7030; Q0092

== ENCOUNTER 2019-05-27 08:11 | Inpatient (IN) | payer OTHER, BC ==
[~2019-05-27] VITALS: Ht 160 cm; Wt 95.3 kg
[2019-05-27 08:30] VITALS: Ht 160 cm; Wt 95.3 kg
--- NOTE | 2019-05-27 09:16 | NUR ---
AGENCY DOCUMENTATION DONE BY Staff Name/Title - : WAGNER MILIAN JR/ASHA [employer] User ID - : [id number] Agency Name - : [employer] Time Documented - From - : 699 To - : 1929
--- NOTE | 2019-05-27 09:17 | NUR ---
ASSUMED PATIENT CARE, NURSING ASSESSMENT COMPLETED.
--- NOTE | 2019-05-27 09:25 | NUR ---
DR TAMAYO AT BEDSIDE, MSE COMPLETED.
[2019-05-27 12:44] LABS: BASOPHIL % 0.6 % (0-2); PLATELET COUNT 362 x10^3mcL (130-400)
[2019-05-27 12:47] LABS: RED CELL DISTRIBUTION WIDTH 16.3 % (11.5-14.5)
[2019-05-27 12:59] LABS: ALT/SGPT 16 U/L (14-59); AST/SGOT 171 U/L (15-37); CHLORIDE SERUM 101 mmol/L (98-107); CREATININE SERUM 1.6 mg/dL (0.6-1.0); GLUCOSE SERUM 339 mg/dL (74-106); POTASSIUM SERUM 4.4 mmol/L (3.5-5.1); SODIUM SERUM 136 mmol/L (136-145)
[2019-05-27 13:12] LABS: ALKALINE PHOSPHATASE 128 U/L (46-116); BILIRUBIN TOTAL 0.25 mg/dL (0.20-1.00); CARBON DIOXIDE 28.1 mmol/L (21-32); TOTAL PROTEIN, SERUM 7.2 g/dL (6.4-8.2)
[2019-05-27 13:13] LABS: ALBUMIN 2.9 g/dL (3.4-5.0)
--- NOTE | 2019-05-27 13:28 | NUR ---
PT AMBULATED WITH STEADY GAIT TO ED RESTROOM, ASKED TO COLLECT URINE SAMPLE. PT RETURNED FROM RESTROOM, NO INCIDENT. PT REPORTED THAT SHE "JUST COULDN'T HOLD IT" AND WAS UNABLE TO PROVIDE URINE SAMPLE IN CUP. STATES "I'LL GET IT NEXT TIME."
--- NOTE | 2019-05-27 14:41 | NUR ---
DISPO AND MEDICAL DECISION MAKING INPATIENT ADMISSION FOR FURTHER MANAGEMENT, PATIENT CARE REPORT ENDORSED TO ASHA OWUSU, CONTINUITY OF CARE ENDORSED. PATIENT AND SPOUSE UPDATED ACCORDINGLY.
[2019-05-27 14:45] LABS: T3 TOTAL 0.96 ng/mL
--- NOTE | 2019-05-27 14:50 | NUR ---
RECEIVED PT VIA GURMARCO ANTONIO FROM E/D, ACCOMPANIED BY RN, TRANSPORTER, AND PT'S , LAURI AGUILAR. PT A/A/O X 4, ANXIOUS (AMB RESTLESSNESS & VERBALIZATION OF ANXIOUSNESS) BUT COOPERATIVE TO CARE; WEARS GLASSES (NOT W/ PT). PT W/ GENERALIZED WEAKNESS, BUT ABLE TO AMBULATE W/ ASSISTANCE W/ SLOW, STEADY GAIT; USES CANE/WALKER @ HOME; FELL 05/23/19, C/O CONSTANT SHARP PAIN TO R HIP 12/13 EXACERBATED BY MOVEMENT AND RELIEVED BY REST AND PAIN MEDICATIONS; FALL RISK PROTOCOL IN PLACE. ON TELE # 1, NSR, HR 85, DENIES CHEST PAIN OR DISCOMFORT AT THIS TIME. SCD BY BEDSIDE. NO ACUTE RESPIRATORY DISTRESS NOTED. IV SITE LFA 18G, CDI. ORIENTED PT AND TO ROOM, BED CONTROLS, CALL LIGHT SYSTEM. SIDE RAILS UP X 2, BED IN LOW POSITION. WILL ENDORSE TO ASHA OWUSU.
[2019-05-27 15:09] LABS: FREE T4 1.11 ng/dL (0.76-1.46); FREE THYROXINE INDEX 2.8 ug/dL (1.4-4.5); T4(THYROXINE) 8.1 ug/dL (4.7-13.3)
--- NOTE | 2019-05-27 16:46 | NUR ---
PATIENT WAS C/O OF LOWER BACK PAIN AND RIGHT HIP PAIN 11/13, MEDICATED PATIENT WITH NORCO PER PROTOCOL (SEE EMAR), REPOSITION PATIENT FOR COMFORT. ALL NEEDS MEET AT THIS TIME. CALL LIGHT WITHIN REACH, WILL CONTINUE TO MONITOR.
[2019-05-27 17:34] VITALS: BP 124/52
[2019-05-27 17:50] LABS: microscopic required? NO
--- NOTE | 2019-05-27 18:02 | NUR ---
URINE COLLECTED AT THIS TIME AND SENT TO LAB. ALL NEEDS MAT THIS TIME, WILL CONTINUE TO MONITOR.
[2019-05-27 18:15] LABS: UA SPECIFIC GRAVITY 1.025 (1.005-1.035); urine erythrocyte NEGATIVE (NEGATIVE)
[2019-05-27 18:24] LABS: AMPHETAMINE QUAL UR NONE DETECTED (See below)
--- NOTE | 2019-05-27 18:44 | NUR ---
PATIENT IS ASLEEP AT THIS TIME, NO ACUTE DISTRESS NOTED. PATIENT DENIES PAIN AT THIS TIME. TELE MONITOR IN PLACE. NS IV INFUSING TO LFA AT 100ML/HR, IV SITE CDI&PATENT. ALL NEEDS MET AT THIS TIME. WILL CONTINUE TO MONITOR & ENDORSE REPORT.
--- NOTE | 2019-05-27 19:52 | NUR ---
RECEIVED PATIENT IN BED AWAKE, ALERT WITH NO SIGN OF ACUTE DISTRESS. BREATHING EASY AND NONLABOR SATTING AT 97% RA. TELE#1 NSR ON MONITOR. DENIES PAIN AND DISCOMFORT AT HIS TIME. IV TO LFA INTACT AND INFUSING WELL. WILL CONTINUE TO MONITOR. CALL LIGHT WITHIN REACH.
[2019-05-27 21:32] VITALS: BP 99/45
--- NOTE | 2019-05-28 00:06 | NUR ---
SLEEPING THIS TIME AFTER PATIENT REQUESTED RESTORIL, BREATHING EASYA ND NONLABOR.
[2019-05-28 05:17] VITALS: BP 106/48
--- NOTE | 2019-05-28 05:23 | NUR ---
SLEPT AT LONG INTERVALS, DENIES PAIN AND DISCOMFORT THE ENTIRE SHIFT. ALL NEEDS ATTENDED.
[2019-05-28 06:57] LABS: BASOPHIL % 0.4 % (0-2); PLATELET COUNT 312 x10^3mcL (130-400)
[2019-05-28 07:04] LABS: RED CELL DISTRIBUTION WIDTH 16.2 % (11.5-14.5)
[2019-05-28 07:11] LABS: CALCIUM 8.5 mg/dL (8.5-10.1); CARBON DIOXIDE 29.7 mmol/L (21-32); CHLORIDE SERUM 108 mmol/L (98-107); CREATININE SERUM 1.8 mg/dL (0.6-1.0); GLUCOSE SERUM 104 mg/dL (74-106); MAGNESIUM 2.3 mg/dL (1.8-2.4); PHOSPHOROUS 5.2 mg/dL (2.5-4.9); POTASSIUM SERUM 4.9 mmol/L (3.5-5.1); SODIUM SERUM 142 mmol/L (136-145)
--- NOTE | 2019-05-28 07:17 | NUR ---
RECEIVED PATIENT SLEEPING BUT AROUSABLE, PATIENT DRIP OFF TO SLEEP. APPEAR COMFORTABLE. TELE #1 SR W/ BBB, HR 70 NOTED. IV TO LFA INTACT AND INFUSING WELL, NO ERYTHEM OR SWELLING NOTED. CALL LIGHT WITHIN REACH.
[2019-05-28 09:00] VITALS: BP 101/69
--- NOTE | 2019-05-28 09:05 | NUR ---
DR. KIMBROUGH WITH RESIDENT CAME AND SEE PATIENT, DISCUSS POC WITH PATIENT, PLAN DISCHARGE HOME TODAY. PO MEDS ADMINISTERED AND TOLERATED. INFORM PATIENT PT WILL BE WORKING WITH HER LATER. NEEDS MET. CONT TO MONITOR.
[2019-05-28] MEDS ORDERED: DIO80 PO (10:10)
[2019-05-28] MEDS ORDERED: NEU300 PO (10:11)
[2019-05-28] MEDS ORDERED: RES15 PO (10:11)
[2019-05-28 10:41] VITALS: BP 101/69
--- NOTE | 2019-05-28 12:32 | NUR ---
PATIENT SAT UP AT SIDE OF BED, NO COMPLAIN. GAVE 9UNITS REGULAR INSULIN SQ FOR BS 257. LUNCH TRAY IS AT BEDSIDE. ICE CHIPS OFFERED. CALL LIGHT WITHIN REACH.
[2019-05-28 12:37] VITALS: BP 128/71
--- NOTE | 2019-05-28 13:17 | NUR ---
INFORM DR. AMOR PER PT EVAL PATIENT NEED HOME HEALTH PT.
--- NOTE | 2019-05-28 15:52 | NUR ---
PATIENT'S HERE IN THE ROOM, PATIENT AWAKEN AT THIS TIME. DISCHARGE INSTRUCTION AND PRESCRIPTION EXPLAINED. INFORM LAURI TO WEAVER HAND MEDICATION AT [facility] AND F/U WITH PCP IN 1 WEEK. PATIENT AND VERBALIZE UNDERSTAND. IV REMOVED W/ CATH INTACT, NO SWELLING NOTED. GAUZES APPLIED TO SITE. TELE BOX #1 RETURN TO [facility]. CALL INTERIOR WALL ASSEMBLER TO ASSIST PATIENT OUT.
--- NOTE | 2019-05-28 16:00 | NUR ---
PRODUCTION RECORDER WHEEL PATIENT OUT WITH ALL BELONGINGS WITH AT THIS TIME.
== END 2019-05-28 16:06 | disposition home health service (06) | DRG 887 ==
LOC: ED 08:11 → DU 13:41
PROVIDERS: Emergency Medicine; ADMIT Family Medicine
DX: G47.00 Insomnia, unspecified (principal); E44.0 Moderate protein-calorie malnutrition; E11.65 Type 2 diabetes mellitus with hyperglycemia; N18.3 Chronic kidney disease, stage 3 (moderate); D63.8 Anemia in other chronic diseases classified elsewhere; I12.9 Hypertensive chronic kidney disease with stage 1 through stage 4 chronic kidney disease, or unspecified chronic kidney disease; G89.29 Other chronic pain; F41.1 Generalized anxiety disorder; M54.9 Dorsalgia, unspecified
CPT/HCPCS: 82962; 84439; 97116-GP; G0378; G0480; J1815; J2060; J7030; Q0092

== ENCOUNTER 2019-05-30 03:11 | Emergency (ER) | payer OTHER, BC ==
[~2019-05-30] VITALS: Ht 162.6 cm; Wt 90.7 kg
[~2019-05-30 03:11] MED LIST changes: +DIO80 PO; +NEU300 PO; +RES15 PO
[2019-05-30 03:17] VITALS: Ht 162.6 cm; Wt 90.7 kg
[2019-05-30 05:08] VITALS: BP 152/52
== END 2019-05-30 07:25 | disposition home or self-care (01) ==
LOC: ED 03:11
DX: G47.00 Insomnia, unspecified (principal); E11.9 Type 2 diabetes mellitus without complications; Z88.0 Allergy status to penicillin; Z88.6 Allergy status to analgesic agent; Z88.5 Allergy status to narcotic agent; Z98.890 Other specified postprocedural states; Z90.89 Acquired absence of other organs; Z90.49 Acquired absence of other specified parts of digestive tract

== ENCOUNTER 2019-06-02 20:48 | Emergency (ER) | payer OTHER, BC ==
[~2019-06-02] VITALS: Ht 162.6 cm; Wt 90.7 kg
[2019-06-02 20:56] VITALS: Ht 162.6 cm; Wt 90.7 kg
[2019-06-02 21:55] LABS: BASOPHIL % 1.9 % (0-2)
[2019-06-02 21:56] LABS: PLATELET COUNT 406 x10^3mcL (130-400); RED CELL DISTRIBUTION WIDTH 16.4 % (11.5-14.5)
[2019-06-02 22:37] VITALS: BP 124/71
[2019-06-02 22:39] LABS: CALCIUM 8.7 mg/dL (8.5-10.1); CARBON DIOXIDE 28.5 mmol/L (21-32); CHLORIDE SERUM 106 mmol/L (98-107); CREATININE SERUM 1.4 mg/dL (0.6-1.0); GLUCOSE SERUM 175 mg/dL (74-106); POTASSIUM SERUM 3.8 mmol/L (3.5-5.1); SODIUM SERUM 141 mmol/L (136-145)
== END 2019-06-02 22:37 | disposition home or self-care (01) ==
LOC: ED 20:48
PROVIDERS: Emergency Medicine
DX: F41.9 Anxiety disorder, unspecified (principal); E11.9 Type 2 diabetes mellitus without complications; Z90.49 Acquired absence of other specified parts of digestive tract; Z88.0 Allergy status to penicillin; Z88.6 Allergy status to analgesic agent; Z88.8 Allergy status to other drugs, medicaments and biological substances; Z98.890 Other specified postprocedural states
CPT/HCPCS: J1200

== ENCOUNTER 2019-06-08 17:49 | Emergency (ER) | payer OTHER, BC ==
[~2019-06-08] VITALS: Ht 162.6 cm; Wt 95.3 kg
[2019-06-08 17:51] VITALS: Ht 162.6 cm; Wt 95.3 kg
[2019-06-08 18:16] LABS: BASOPHIL % 0.5 % (0-2); PLATELET COUNT 439 x10^3mcL (130-400)
[2019-06-08 18:29] LABS: CALCIUM 9.2 mg/dL (8.5-10.1); CARBON DIOXIDE 27.3 mmol/L (21-32); CHLORIDE SERUM 102 mmol/L (98-107); CREATININE SERUM 1.7 mg/dL (0.6-1.0); GLUCOSE SERUM 149 mg/dL (74-106); SODIUM SERUM 136 mmol/L (136-145)
[2019-06-08 18:34] LABS: ALBUMIN 3.3 g/dL (3.4-5.0); ALKALINE PHOSPHATASE 151 U/L (46-116); ALT/SGPT 20 U/L (14-59); AST/SGOT 21 U/L (15-37); BILIRUBIN TOTAL 0.4 mg/dL (0.20-1.00); MAGNESIUM 2.2 mg/dL (1.8-2.4)
[2019-06-08 20:30] VITALS: BP 150/70
== END 2019-06-08 20:30 | disposition home or self-care (01) ==
LOC: ED 17:49
PROVIDERS: Emergency Medicine
DX: F41.9 Anxiety disorder, unspecified (principal); Z88.0 Allergy status to penicillin; Z88.6 Allergy status to analgesic agent; Z88.5 Allergy status to narcotic agent; Z98.84 Bariatric surgery status; Z90.89 Acquired absence of other organs; E11.9 Type 2 diabetes mellitus without complications
CPT/HCPCS: 36415; 87804; J2060; Q0092

== ENCOUNTER 2019-08-12 15:05 | Emergency (ER) | payer OTHER, BC ==
[~2019-08-12] VITALS: Ht 162.6 cm; Wt 90.7 kg
[2019-08-12 15:16] VITALS: Ht 162.6 cm; Wt 90.7 kg
[2019-08-12 17:06] VITALS: BP 118/75
== END 2019-08-12 17:06 | disposition home or self-care (01) ==
LOC: ED 15:05
DX: N39.0 Urinary tract infection, site not specified (principal); M54.5 Low back pain; Z90.49 Acquired absence of other specified parts of digestive tract; Z90.89 Acquired absence of other organs; Z98.890 Other specified postprocedural states; Z88.0 Allergy status to penicillin; Z88.6 Allergy status to analgesic agent; Z88.8 Allergy status to other drugs, medicaments and biological substances; Z79.899 Other long term (current) drug therapy
CPT/HCPCS: J3010